=== PATIENT | male | born 1970 | race Caucasian/White ===

== ENCOUNTER 2016-10-29 20:54 | Emergency (ER) | payer OTHER ==
[2016-10-29 21:13] VITALS: BP 134/91
[2016-10-29] MEDS ORDERED: Albuterol/Ipratropium 3.0-0.5 MG/3 ML Neb Soln NEB ONE (21:21)
[2016-10-29] MEDS ORDERED: Sodium Chloride 0.9% 1,000 ML IV ONE ×2 (21:21→22:26)
--- NOTE | 2016-10-29 21:23 | EDM.PDOC ---
[id number] 4d NAUSEA, VOMITING Time Seen by Provider: 10/29/16 21:00 Source of Information: Reports: Patient History Limitations: Reports: Physical impairment - History of Present Illness INITIAL COMMENTS - FREE TEXT/NARRATIVE: 46 years old w m came to the ed because he does not "feel right" in the past week or so. Pt was seen in the clinic a few days ago for same. No N/V/D but had poor water intake because he did not feel a need to drink water. He stated as well he feels dizzy at times and can walk only short distances. He c/o a sore throat as well. Onset Date: 10/21/16 Onset Time: 06:00 Duration: Week(s): - Related Data Allergies Allergy/AdvReac Type Severity Reaction Status Date / Time No Known Allergies Allergy Verified 10/29/16 22:32 Home Meds: Home Meds Ranitidine HCl [Acid Set Up Mechanic Automatic Line] 150 mg PO BID 10/29/16 [History] Omeprazole 20 mg PO BIDAC #30 cap.cr 10/30/16 [Rx] Ondansetron [Zofran ODT] 4 mg PO Q6H PRN #20 tab.dis 10/30/16 [Rx] ED ROS GENERAL - Review of Systems Review Of Systems: See Below Constitutional: Reports: no symptoms HEENT: Reports: Throat pain Respiratory: Reports: No Symptoms Cardiovascular: Reports: No symptoms Endocrine: Reports: no symptoms GI/Abdominal: Reports: Nausea, Other (epigastric tenderness) : Reports: no symptoms Musculoskeletal: Reports: no symptoms Skin: Reports: no symptoms Neurological: Reports: Dizziness Psychiatric: Reports: No symptoms Hematologic/Lymphatic: Reports: no symptoms Immunologic: Reports: no symptoms ED EXAM, GENERAL - Physical Exam Exam: See Below Exam Limited By: No limitations General Appearance: alert, WD/WN, mild distress, obese Eye Exam: bilateral eye: normal inspection Ears: normal external exam, normal canal Ear Exam: bilateral ear: auricle normal Nose: normal inspection, normal mucosa Throat/Mouth: Inflammation (pharyngitis) Head: atraumatic, normocephalic Neck: normal inspection, supple, non-tender, full range of motion Respiratory/Chest: wheezing (mild expiratory wheezing) Cardiovascular: normal peripheral pulses Peripheral Pulses: 2+: femoral (L), femoral (R) GI/Abdominal: tender (epigastric ) (Male) Exam: Deferred Rectal (Males) Exam: Deferred Back Exam: normal inspection Extremities: normal inspection, normal range of motion, non-tender, no pedal edema, normal capillary refill Neurological: alert, oriented, CN II-XII intact, normal cognition Psychiatric: normal affect, normal mood Skin Exam: Warm, Dry, Intact, Normal color, No rash EKG INTERPRETATION EKG Date: 10/29/16 Time: 21:35 Rhythm: NSR Rate (beats/min): 68 Ronks: normal P-wave: present QRS: normal ST-T: normal QT: normal Comparison: NA - no prior EKG Course - Vital Signs Text/Narrative:: 46 years old w m came to the ed because he does not "feel right" in the past week or so. Pt was seen in the clinic a few days ago for same. No N/V/D but had poor water intake because he did not feel a need to drink water. He stated as well he feels dizzy at times and can walk only short distances. He c/o a sore throat as well. last BM yesterday (nl no blood seen) PE: WNWD w M in no acute distress. Pharyngitis, epigastric tenderness, dry mucosal membrane Labs: elevated HGB and HK, UA pos Ketons Impression: Dehydration, gastritis, pharyngitis (Cx is pending) Tx: NS, Zofran, Omeprazole. Reexam: Improved Plan: D/c with instructions Last Recorded V/S: Last Vital Signs Temp 36.3 C 10/29/16 21:00 Pulse 68 10/29/16 21:00 Resp 18 10/29/16 21:00 BP 134/91 H 10/29/16 21:00 Pulse Ox 96 10/29/16 21:00 - Orders/Labs/Meds Orders: Active Orders 24 hr Category Date Time Status EKG Documentation Completion [RC] ASDIRECTED Care 10/29/16 21:26 Active RT Aerosol Therapy [RC] ASDIRECTED Care 10/29/16 21:22 Active STREP SCRN A RAPID W CULT CONF [RM] Stat Lab 10/29/16 23:53 Results EKG 12 Lead [EK] Routine Ther 10/29/16 21:26 Ordered Labs: Laboratory Tests 10/29/16 10/29/16 10/29/16 Range/Units 00:01 21:30 21:30 WBC 10.3 (4.5-12.0) X10-3/uL RBC 5.98 H (4.30-5.75) x10(6)uL Hgb 18.2 H (11.5-15.5) g/dL Hct 53.6 H (30.0-51.3) % MCV 89.6 (80-96) fL MCH 30.4 (27.7-33.6) pg MCHC 34.0 (32.2-35.4) g/dL RDW 12.4 (11.5-15.5) % Plt Count 178 (125-369) X10(3)uL MPV 7.6 (7.4-10.4) fL Neut % (Auto) 67.2 (46-82) % Lymph % (Auto) 20.3 (13-37) % Petroleum % (Auto) 10.5 (4-12) % Eos % (Auto) 1 (1.0-5.0) % Baso % (Auto) 1 (0-2) % Neut # (Auto) 6.9 (1.6-8.3) # Lymph # (Auto) 2.1 (0.6-5.0) # Petroleum # (Auto) 1.1 (0.0-1.3) # Eos # (Auto) 0.1 (0.0-0.8) # Baso # (Auto) 0.1 (0.0-0.2) # PT 10.7 (8.7-11.1) INR 1.06 (0.89-1.13) Sodium (135-145) mmol/L Potassium (3.5-5.3) mmol/L Chloride (100-110) mmol/L Carbon Dioxide (23-29) mmol/L BUN (5-20) mg/dL Creatinine (0.6-1.3) mg/dL Est Cr Clr Drug Dosing mL/min Estimated GFR (MDRD) (>60) BUN/Creatinine Ratio (9-20) Glucose (80-116) mg/dL Lactic Acid (0.5-2.2) mmol/L Calcium (8.6-10.2) mg/dL Total Bilirubin (0.1-1.3) mg/dL Direct Bilirubin (0.1-0.2) mg/dL AST (5-27) IU/L ALT (14-26) IU/L Alkaline Phosphatase (56-112) IU/L Troponin I (0.02-0.06) NG/ML B-Natriuretic Peptide (0-100) pg/mL Total Protein (6.0-8.0) g/dL Albumin (3.5-5.2) g/dL Urine Color Yellow (YELLOW) Urine Appearance Clear (CLEAR) Urine pH 5.0 (5.0-6.5) Ur Specific [place] 1.015 (1.010-1.025) Urine Protein Negative (NEGATIVE) mg/dL Urine Glucose (UA) Normal (NEGATIVE) mg/dL Urine Ketones 15 H (NEGATIVE) mg/dL Urine Occult Blood Negative (NEGATIVE) Urine Nitrite Negative (NEGATIVE) Urine Bilirubin Negative (NEGATIVE) Urine Urobilinogen Normal (NEGATIVE) mg/dL Ur Leukocyte Esterase Negative (NEGATIVE) Urine RBC 0-5 (0) Urine WBC 0-5 (0) Ur Squamous Epith Cells Occasional (NS,R,O) Urine Bacteria Few H (NS) 10/29/16 10/29/16 10/29/16 Range/Units 21:30 21:30 21:30 WBC (4.5-12.0) X10-3/uL RBC (4.30-5.75) x10(6)uL Hgb (11.5-15.5) g/dL Hct (30.0-51.3) % MCV (80-96) fL MCH (27.7-33.6) pg MCHC (32.2-35.4) g/dL RDW (11.5-15.5) % Plt Count (125-369) X10(3)uL MPV (7.4-10.4) fL Neut % (Auto) (46-82) % Lymph % (Auto) (13-37) % Petroleum % (Auto) (4-12) % Eos % (Auto) (1.0-5.0) % Baso % (Auto) (0-2) % Neut # (Auto) (1.6-8.3) # Lymph # (Auto) (0.6-5.0) # Petroleum # (Auto) (0.0-1.3) # Eos # (Auto) (0.0-0.8) # Baso # (Auto) (0.0-0.2) # PT (8.7-11.1) INR (0.89-1.13) Sodium 134 L (135-145) mmol/L Potassium 3.8 (3.5-5.3) mmol/L Chloride 101 (100-110) mmol/L Carbon Dioxide 22 L (23-29) mmol/L BUN 16 (5-20) mg/dL Creatinine 0.9 (0.6-1.3) mg/dL Est Cr Clr Drug Dosing 130.63 mL/min Estimated GFR (MDRD) > 60 (>60) BUN/Creatinine Ratio 17.8 (9-20) Glucose 106 (80-116) mg/dL Lactic Acid 1.1 (0.5-2.2) mmol/L Calcium 9.1 (8.6-10.2) mg/dL Total Bilirubin 0.9 (0.1-1.3) mg/dL Direct Bilirubin 0.1 (0.1-0.2) mg/dL AST 48 H (5-27) IU/L ALT 87 H (14-26) IU/L Alkaline Phosphatase 73 (56-112) IU/L Troponin I (0.02-0.06) NG/ML B-Natriuretic Peptide < 5 (0-100) pg/mL Total Protein 7.4 (6.0-8.0) g/dL Albumin 4.2 (3.5-5.2) g/dL Urine Color (YELLOW) Urine Appearance (CLEAR) Urine pH (5.0-6.5) Ur Specific [place] (1.010-1.025) Urine Protein (NEGATIVE) mg/dL Urine Glucose (UA) (NEGATIVE) mg/dL Urine Ketones (NEGATIVE) mg/dL Urine Occult Blood (NEGATIVE) Urine Nitrite (NEGATIVE) Urine Bilirubin (NEGATIVE) Urine Urobilinogen (NEGATIVE) mg/dL Ur Leukocyte Esterase (NEGATIVE) Urine RBC (0) Urine WBC (0) Ur Squamous Epith Cells (NS,R,O) Urine Bacteria (NS) 10/29/16 Range/Units 21:30 WBC (4.5-12.0) X10-3/uL RBC (4.30-5.75) x10(6)uL Hgb (11.5-15.5) g/dL Hct (30.0-51.3) % MCV (80-96) fL MCH (27.7-33.6) pg MCHC (32.2-35.4) g/dL RDW (11.5-15.5) % Plt Count (125-369) X10(3)uL MPV (7.4-10.4) fL Neut % (Auto) (46-82) % Lymph % (Auto) (13-37) % Petroleum % (Auto) (4-12) % Eos % (Auto) (1.0-5.0) % Baso % (Auto) (0-2) % Neut # (Auto) (1.6-8.3) # Lymph # (Auto) (0.6-5.0) # Petroleum # (Auto) (0.0-1.3) # Eos # (Auto) (0.0-0.8) # Baso # (Auto) (0.0-0.2) # PT (8.7-11.1) INR (0.89-1.13) Sodium (135-145) mmol/L Potassium (3.5-5.3) mmol/L Chloride (100-110) mmol/L Carbon Dioxide (23-29) mmol/L BUN (5-20) mg/dL Creatinine (0.6-1.3) mg/dL Est Cr Clr Drug Dosing mL/min Estimated GFR (MDRD) (>60) BUN/Creatinine Ratio (9-20) Glucose (80-116) mg/dL Lactic Acid (0.5-2.2) mmol/L Calcium (8.6-10.2) mg/dL Total Bilirubin (0.1-1.3) mg/dL Direct Bilirubin (0.1-0.2) mg/dL AST (5-27) IU/L ALT (14-26) IU/L Alkaline Phosphatase (56-112) IU/L Troponin I < 0.01 L (0.02-0.06) NG/ML B-Natriuretic Peptide (0-100) pg/mL Total Protein (6.0-8.0) g/dL Albumin (3.5-5.2) g/dL Urine Color (YELLOW) Urine Appearance (CLEAR) Urine pH (5.0-6.5) Ur Specific [place] (1.010-1.025) Urine Protein (NEGATIVE) mg/dL Urine Glucose (UA) (NEGATIVE) mg/dL Urine Ketones (NEGATIVE) mg/dL Urine Occult Blood (NEGATIVE) Urine Nitrite (NEGATIVE) Urine Bilirubin (NEGATIVE) Urine Urobilinogen (NEGATIVE) mg/dL Ur Leukocyte Esterase (NEGATIVE) Urine RBC (0) Urine WBC (0) Ur Squamous Epith Cells (NS,R,O) Urine Bacteria (NS) Meds: Medications Discontinued Medications Generic Name Dose Route Start Last Admin Trade Name Freq PRN Reason Stop Dose Admin Albuterol/Ipratropium 3 ml 10/29/16 21:21 10/29/16 21:59 Duoneb 3.0-0.5 Mg/3 Ml NEB 10/29/16 21:22 3 ml ONETIME ONE Administration Sodium Chloride 1,000 mls @ 999 mls/hr 10/29/16 21:21 10/29/16 21:51 Normal Saline IV 10/29/16 22:21 999 mls/hr .BOLUS ONE Administration Sodium Chloride 1,000 mls @ 999 mls/hr 10/29/16 22:26 10/29/16 22:59 Normal Saline IV 10/29/16 23:26 999 mls/hr .BOLUS ONE Administration Omeprazole 40 mg 10/30/16 00:14 10/30/16 00:39 Omeprazole PO 10/30/16 00:15 Not Given ONETIME STA Omeprazole Confirm 10/30/16 00:23 10/30/16 00:33 Omeprazole Administered 10/30/16 00:24 Not Given Dose 40 mg .ROUTE .STK-MED ONE Omeprazole 40 mg 10/30/16 00:26 10/30/16 00:32 Omeprazole PO 10/30/16 00:27 40 mg ONETIME STA Administration Ondansetron HCl 8 mg 10/30/16 00:14 10/30/16 00:32 Zofran IVPUSH 10/30/16 00:15 8 mg ONETIME ONE Administration Departure - Departure Time of Disposition: 00:34 Disposition: Home, Self-Care 01 Condition: good Clinical Impression: Dehydration Pharyngitis Qualifiers: Pharyngitis/tonsillitis etiology: unspecified etiology Qualified Code(s): J02.9 - Acute pharyngitis, unspecified Gastritis Qualifiers: Gastritis type: unspecified gastritis Chronicity: acute Gastritis bleeding: without bleeding Qualified Code(s): K29.00 - Acute gastritis without bleeding Prescriptions: Omeprazole 20 mg PO BIDAC #30 cap.cr Ondansetron [Zofran ODT] 4 mg PO Q6H PRN #20 tab.dis PRN Reason: Nausea Instructions: Gastritis, Adult Referrals: PCP,None [Primary Care Provider] - Forms: ED Department Discharge Additional Instructions: Please take the meds as recommended, please increase water intake, please follow up, please come back if the symptoms get worse acutely. - My Orders Last 24 Hours: My Active Orders 10/29/16 21:22 RT Aerosol Therapy [RC] ASDIRECTED 10/29/16 21:26 EKG Documentation Completion [RC] ASDIRECTED EKG 12 Lead [EK] Routine 10/29/16 23:53 STREP SCRN A RAPID W CULT CONF [RM] Stat - Assessment/Plan Last 24 Hours: My Active Orders 10/29/16 21:22 RT Aerosol Therapy [RC] ASDIRECTED 10/29/16 21:26 EKG Documentation Completion [RC] ASDIRECTED EKG 12 Lead [EK] Routine 10/29/16 23:53 STREP SCRN A RAPID W CULT CONF [RM] Stat
[2016-10-30] MEDS ORDERED: Ondansetron 4 MG/2 ML SDV IVPUSH ONE (00:14)
[2016-10-30] MEDS ORDERED: Omeprazole 40 MG Cap.CR PO STA (00:14)
[2016-10-30] MEDS ORDERED: Omeprazole 20 MG Cap.CR ONE (00:23)
[2016-10-30] MEDS ORDERED: Omeprazole 20 MG Cap.CR PO STA (00:26)
== END 2016-10-30 00:50 | disposition home or self-care (01) ==
LOC: FB.ED 20:54
DX: K29.00 Acute gastritis without bleeding (principal); J02.9 Acute pharyngitis, unspecified; E86.0 Dehydration
CPT/HCPCS: 36415; 80048; 80076; 81001; 83605; 83880; 84484; 85025; 85610; 87081; 87430; 93005; 96361; 96374; 99283; A9270; J2405; J7040; J7620; 94640; 99284

== ENCOUNTER 2022-07-22 07:11 | Emergency (ER) | payer OTHER ==
[2022-07-22] MEDS ORDERED: Acetaminophen/HYDROcodone 325-5 MG Tab PO ONE (07:12)
[2022-07-22 07:19] VITALS: BP 128/91; PULSE 80
== END 2022-07-22 08:25 | disposition home or self-care (01) ==
LOC: FB.ED 07:11
DX: M23.92 Unspecified internal derangement of left knee (principal); Z79.899 Other long term (current) drug therapy; W10.9XXA Fall (on) (from) unspecified stairs and steps, initial encounter
CPT/HCPCS: 73562-LT; 99283; A9270-GY